=== PATIENT | female | born 1965 | race African-American/Black ===

== ENCOUNTER 2019-04-03 09:12 | Inpatient (IN) | payer OTHER ==
[~2019-04-03] VITALS: Ht 165.1 cm; Wt 91.3 kg
[2019-04-03] MEDS ORDERED: fentaNYL PF VIAL 100 MCG/2 ML VIAL IVP ONE (09:30)
[2019-04-03] MEDS ORDERED: IPRATRPIUM/ALBUTEROL 0.5/2.5MG 3 ML NEBU. NEB ONE (09:30)
[2019-04-03] MEDS ORDERED: methylPREDNISolone SOD SUCC PF 125 MG/2 ML VIAL. IV ONE (09:30)
[2019-04-03 09:52] LABS: BASO % 0 % (0-3); EOS % 0 % (0-3); HEMOGLOBIN 13.6 g/dL (12.0-15.5); LYMPH % 10 % (24-48); MEAN CORPUSCULAR HEMOGLOBIN 29 pg (25-35); MEAN CORPUSCULAR HGB CONC 33 g/dL (31-37); MEAN CORPUSCULAR VOLUME 89 fL (79-100); MONO # 1.3 x10^3/uL (0.0-1.1); MONO % 13 % (0-9); NEUT # 7.4 x10^3/uL (1.8-7.7); NEUT % 76 % (31-73); PLATELET COUNT 413 x10^3/uL (140-400); RED BLOOD COUNT 4.63 x10^6/uL (3.50-5.40); RED CELL DISTRIBUTION WIDTH 15.2 % (11.5-14.5); WHITE BLOOD COUNT 9.7 x10^3/uL (4.0-11.0)
[2019-04-03 10:00] LABS: ANION GAP 11 (6-14); BLOOD UREA NITROGEN 6 mg/dL (7-20); BUN/CREATININE RATIO 7 (6-20); CALCIUM 9.2 mg/dL (8.5-10.1); CARBON DIOXIDE 32 mmol/L (21-32); CHLORIDE 97 mmol/L (98-107); CREATININE 0.9 mg/dL (0.6-1.0); GFR 78.7; GLUCOSE 158 mg/dL (70-99); POTASSIUM 3.1 mmol/L (3.5-5.1); SODIUM 140 mmol/L (136-145)
--- NOTE | 2019-04-03 10:01 | RAD ---
PORTABLE CHEST 1V History: Shortness of breath. Chest pain. Comparison: July 23, 2005. Findings: Patchy bibasilar opacities with interstitial thickening and consolidative appearance within the right midlung. Enlarged cardiac silhouette. Small right and possible left pleural effusions. No pneumothorax. Impression: 1. Patchy central and bibasilar opacities with consolidative appearance in the right mid lung, may represent pneumonia or edema. 2. Small right pleural effusion. 3. Enlarged cardiac silhouette. Electronically signed by: Jamie Gunter DO (04/03/2019 9:59 AM) [facility]
[2019-04-03 10:02] LABS: PROTHROMBIN TIME PATIENT 14.8 SEC (11.7-14.0)
[2019-04-03 10:06] LABS: ALBUMIN 3.1 g/dL (3.4-5.0); ALBUMIN/GLOBULIN RATIO 0.6 (1.0-1.7); ALK PHOS 172 U/L (46-116); ALT (SGPT) 16 U/L (14-59); AST (SGOT) 20 U/L (15-37); CREATINE KINASE 69 U/L (26-192); LIPASE 58 U/L (73-393); MAGNESIUM 1.8 mg/dL (1.8-2.4); TOTAL BILIRUBIN 1.1 mg/dL (0.2-1.0); TOTAL PROTEIN 8.4 g/dL (6.4-8.2)
[2019-04-03 10:21] LABS: D-DIMER 4.95 ug/mlFEU (0.00-0.50)
--- NOTE | 2019-04-03 10:24 | PHYS DOC ---
Past Medical History Past Medical History: Hypertension, Other Additional Past Medical Histor: LEUKEMIA Past Surgical History: No Surgical History Alcohol Use: Occasionally Drug Use: Marijuana Adult General Chief Complaint Chief Complaint: CHEST PAIN HPI HPI Patient is a 53 year old female who presents via EMS with complaining of shortness of breath and chest pain. Patient complaining of intermittent episodes of shortness of breath and chest pain for 1 month that gradually getting worse. Patient states the pain is usually, last 4 all day and is a sharp and stabbing pain in her substernal area with radiation to her back and associated with shortness of breath and weakness. Patient complaining of productive cough and subjective fever and chills. She has history of smoking cigarettes and drinking alcohol 3 times a week. EMS reported that patient had O2 sats of 90% at room air and started on oxygen with improvement of oxygen to 95%. Review of Systems Review of Systems Constitutional: Subjective fever and chills] Eyes: Denies change in visual acuity, redness, or eye pain [] HENT: Denies nasal congestion or sore throat [] Respiratory: Reports cough and shortness of breath Cardiovascular: No additional information not addressed in HPI [] GI: Denies abdominal pain, nausea, vomiting, bloody stools or diarrhea [] : Denies dysuria or hematuria [] Musculoskeletal: Denies back pain or joint pain [] Integument: Denies rash or skin lesions [] Neurologic: Denies headache, focal weakness or sensory changes [] Endocrine: Denies polyuria or polydipsia [] All other systems were reviewed and found to be within normal limits, except as documented in this note. Current Medications Current Medications Current Medications Medications (Trade) Dose Ordered Sig/Carolyn Start Time Stop Time Status Last Admin Dose Admin Albuterol/ Ipratropium (Duoneb) 3 ml 1X ONCE 04/03/19 09:30 04/03/19 09:50 DC 04/03/19 09:36 3 ML Fentanyl Citrate (Fentanyl 2ml Vial) 50 mcg 1X ONCE 04/03/19 09:30 04/03/19 09:50 DC 04/03/19 10:09 50 MCG Methylprednisolone Sodium Succinate (SOLU-Medrol 125MG VIAL) 125 mg 1X ONCE 04/03/19 09:30 04/03/19 09:50 DC 04/03/19 10:08 125 MG Allergies Allergies Allergies Coded Allergies Type Severity Reaction Last Updated Verified No Known Drug Allergies 04/03/19 No Physical Exam Physical Exam Constitutional: Well developed, well nourished, mild distress, non-toxic appearance. [] HENT: Normocephalic, atraumatic. Eyes: PERRLA, EOMI, conjunctiva normal, no discharge. [] Neck: Normal range of motion, no tenderness, supple, no stridor. [] Cardiovascular: Tachycardia, no murmur [] Lungs & Thorax: Marked respiratory distress with wheezing and rhonchi. Abdomen: Bowel sounds normal, soft, no tenderness, no masses, no pulsatile masses. [] Skin: Warm, dry, no erythema, no rash. [] Back: No tenderness, no CVA tenderness. [] Extremities: No tenderness, no cyanosis, no clubbing, ROM intact, no edema. [] Neurologic: Alert and oriented X 3, no focal deficits noted. [] Psychologic: Affect anxious, judgement normal, mood normal. [] Current Patient Data Vital Signs Vital Signs Date Time Temp Pulse Resp B/P (MAP) Pulse Ox O2 Delivery O2 Flow Rate FiO2 04/03/19 09:36 92 Room Air 04/03/19 09:27 119 28 149/101 (117) 3.0 04/03/19 09:12 100.3 100.3 Lab Values Laboratory Tests Test 04/03/19 09:30 White Blood Count 9.7 x10^3/uL (4.0-11.0) Red Blood Count 4.63 x10^6/uL (3.50-5.40) Hemoglobin 13.6 g/dL (12.0-15.5) Hematocrit 41.0 % (36.0-47.0) Mean Corpuscular Volume 89 fL (79-100) Mean Corpuscular Hemoglobin 29 pg (25-35) Mean Corpuscular Hemoglobin Concent 33 g/dL (31-37) Red Cell Distribution Width 15.2 % (11.5-14.5) H Platelet Count 413 x10^3/uL (140-400) H Neutrophils (%) (Auto) 76 % (31-73) H Lymphocytes (%) (Auto) 10 % (24-48) L Monocytes (%) (Auto) 13 % (0-9) H Eosinophils (%) (Auto) 0 % (0-3) Basophils (%) (Auto) 0 % (0-3) Neutrophils # (Auto) 7.4 x10^3/uL (1.8-7.7) Lymphocytes # (Auto) 1.0 x10^3/uL (1.0-4.8) Monocytes # (Auto) 1.3 x10^3/uL (0.0-1.1) H Eosinophils # (Auto) 0.0 x10^3/uL (0.0-0.7) Basophils # (Auto) 0.0 x10^3/uL (0.0-0.2) Prothrombin Time 14.8 SEC (11.7-14.0) H Prothrombin Time INR 1.2 (0.8-1.1) H D-Dimer (Keisha) 4.95 ug/mlFEU (0.00-0.50) H Sodium Level 140 mmol/L (136-145) Potassium Level 3.1 mmol/L (3.5-5.1) L Chloride Level 97 mmol/L (98-107) L Carbon Dioxide Level 32 mmol/L (21-32) Anion Gap 11 (6-14) Blood Urea Nitrogen 6 mg/dL (7-20) L Creatinine 0.9 mg/dL (0.6-1.0) Estimated GFR (Cockcroft-Gault) 78.7 BUN/Creatinine Ratio 7 (6-20) Glucose Level 158 mg/dL (70-99) H Lactic Acid Level 2.0 mmol/L (0.4-2.0) Calcium Level 9.2 mg/dL (8.5-10.1) Magnesium Level 1.8 mg/dL (1.8-2.4) Total Bilirubin 1.1 mg/dL (0.2-1.0) H Aspartate Amino Transferase (AST) 20 U/L (15-37) Alanine Aminotransferase (ALT) 16 U/L (14-59) Alkaline Phosphatase 172 U/L (46-116) H Creatine Kinase 69 U/L (26-192) Troponin I Quantitative < 0.017 ng/mL (0.000-0.055) JY-Hpq-A-Type Natriuretic Peptide 380 pg/mL (0-124) H Total Protein 8.4 g/dL (6.4-8.2) H Albumin 3.1 g/dL (3.4-5.0) L Albumin/Globulin Ratio 0.6 (1.0-1.7) L Lipase 58 U/L (73-393) L Procalcitonin < 0.10 ng/mL (0.00-0.10) Ethyl Alcohol Level < 10 mg/dL (0-10) Laboratory Tests 04/03/19 09:30 Laboratory Tests 04/03/19 09:30 EKG EKG EKG interpreted by me. EKG at 0 923 showed sinus tachycardia at rate of 115, left atrial abnormalities, abnormal right axis deviation, Q waves in anteroseptal leads, T-wave abnormalities in anterolateral leads, no acute ST and T-wave elevation. Radiology/Procedures Radiology/Procedures [][facility] [address] [place] [address] IMAGING REPORT Signed PATIENT: MIHIR LEBRON ACCOUNT: [id number] : 1965 LOCATION: ER AGE: 53 SEX: F EXAM STATUS: REG ER ORD. PHYSICIAN: RAMY ENRIQUE MD REASON: shortness of breath and chest pain PROCEDURE: PORTABLE CHEST 1V PORTABLE CHEST 1V History: Shortness of breath. Chest pain. Comparison: July 23, 2005. Findings: Patchy bibasilar opacities with interstitial thickening and consolidative appearance within the right midlung. Enlarged cardiac silhouette. Small right and possible left pleural effusions. No pneumothorax. Impression: 1. Patchy central and bibasilar opacities with consolidative appearance in the right mid lung, may represent pneumonia or edema. 2. Small right pleural effusion. 3. Enlarged cardiac silhouette. Electronically signed by: Jamie Serrano DO (04/03/2019 9:59 AM) [facility] DICTATED and SIGNED BY: JAMIE SERRANO DO DATE: 04/03/1959 Course & Med Decision Making Course & Med Decision Making Pertinent Labs and Imaging studies reviewed. (See chart for details) Patient requiring admission for further evaluation and treatment. Discussed with Dr. Carlisle who is in agreement with admission. Discussed findings and plan with patient and family, who acknowledge understanding and agreement. Dragon Disclaimer Dragon Disclaimer This electronic medical record was generated, in whole or in part, using a voice recognition dictation system. Departure Departure Impression: Primary Impression: CAP (community acquired pneumonia) Additional Impressions: Hypertensive urgency Hypoxia Shortness of breath Elevated d-dimer Chest pain Disposition: ADMITTED INPATIENT (1017) Admitting Physician: EMMY (Dr. Carlisle accepted admission of 1016) Condition: IMPROVED Referrals: NO PCP (PCP) Problem Qualifiers Primary Impression: CAP (community acquired pneumonia) Laterality: unspecified laterality Qualified Codes: J18.9 - Pneumonia, unspecified organism Additional Impressions: Chest pain Chest pain type: unspecified Qualified Codes: R07.9 - Chest pain, unspecified RAMY ENRIQUE MD Apr 03, 2019 10:24
[2019-04-03 10:26] LABS: BASE EXCESS ABG 4 mmol/L (-3-3); HCO3 ABG 28 mmol/L (21-28); PCO2 ABG 38 mmHg (35-46); PO2 ABG 60 mmHg (75-108); SAT O2 ABG 93 % (92-99)
[2019-04-03 10:28] LABS: FIO2 ABG 32
[2019-04-03] MEDS ORDERED: cefTRIAXone IV Push 1 GM VIAL. IVP ONE (10:30)
[2019-04-03] MEDS ORDERED: IV NORMAL SALINE 1000ML BAG 1,000 ML IV ONE (10:30)
[2019-04-03] MEDS ORDERED: VANCOMYCIN 1GM IVPB FOR OMNI 250 ML IV ONE (10:30)
[2019-04-03] MEDS ORDERED: IOHEXOL 350 MG/ML 100 ML VIAL. ONE (11:14)
[2019-04-03] MEDS ORDERED: IOHEXOL 350 MG/ML 100 ML VIAL. IV ONE (11:15)
[2019-04-03] MEDS ORDERED: CONTRAST GIVEN. MC PRN (11:15)
[2019-04-03] MEDS: IV NORMAL SALINE 1000ML BAG 1,000 ML IV SCH ×2 (11:16→22:00)
[2019-04-03] MEDS ORDERED: CITA10TA8 PO (11:17)
[2019-04-03] MEDS ORDERED: ALLO300T PO (11:18)
[2019-04-03] MEDS ORDERED: CHLO25TA10 PO (11:18)
[2019-04-03] MEDS ORDERED: AMLO10TA8 PO (11:19)
[2019-04-03] MEDS ORDERED: LISI-130 PO (11:19)
[2019-04-03] MEDS ORDERED: LABETALOL 20 MG/4 ML DISP.SYRIN. IVP ONE (11:30)
--- NOTE | 2019-04-03 11:59 | RAD ---
CTA scan of the Chest with Contrast (Pulmonary Embolism protocol) 04/03/2019 Clinical History: Shortness of breath, chest pain, hypoxia and elevated d-dimer. Leukemia. Technique: After the intravenous administration of 100 cc of Omnipaque 350, contiguous, 0.625 mm axial sections were obtained through the chest. 2 mm axial and 3D MIP coronal and sagittal reconstructed images were obtained. One or more of the following individualized dose reduction techniques were utilized for this study: 1. Automated exposure control. 2. Adjustment of the mA and/or kV according to patient size. 3. Use of iterative reconstruction technique. Findings: Comparison is made to a portable chest radiograph from earlier today. No filling defect is seen within the major branches of either pulmonary artery. There is no CT evidence of pulmonary embolism. The heart is mildly enlarged. There is a moderate-sized pericardial effusion. Atherosclerotic calcification of the thoracic aorta and its branches is noted. The thoracic aorta is tortuous but tapers normally. Scattered coronary artery calcifications are seen. There are small bilateral pleural effusions, right greater than left. Patchy areas of subsegmental atelectasis and/or infiltrate are seen involving the right middle lobe, right lower lobe and left lower lobe. Prominence of the pulmonary vasculature and interstitial markings in both lungs is seen suggesting mild to moderate CHF No pneumothorax is seen. Impression: 1. There is no CT evidence of pulmonary embolism. 2. Mild cardiomegaly. Moderate pericardial effusion. Findings suggesting mild to moderate CHF. 3. Small bilateral pleural effusions, right greater than left. Areas of atelectasis and/or infiltrate are seen involving the right middle lobe, right lower lobe and left lower lobe. Electronically signed by: Allan Magallanes MD (04/03/2019 11:56 AM) [facility]
[2019-04-03 12:00] VITALS: BP 188/105
--- NOTE | 2019-04-03 12:20 | PDOC1 ---
History and Physical Date of Admission Date of Admission DATE: 04/03/19 TIME: 12:20 Identification/Chief Complaint Chief Complaint Chest pain Source Source: Patient History of Present Illness History of Present Illness Ms Rainey is a 53yo F w/ PMHx HTN, Leukemia (diagnosed 8 years ago), Smoker who presents to ED c/o shortness of breath 1 month with new associated onset of chest pain that started today with coughing. She notes the pain is central but also indicates along her rib lines, worse with coughing and deep inspirations. It has gotten so bad she has stopped smoking today. She was initially found hypoxic requiring 3 L NCO2 and in ED CXR showed right middle lobe consolidation and her d dimer was elevated, therefore she underwent CTPA confirming consolidation on the right as well as the left. She was started on empiric antibiotics vancomycin and rocephin and admitted to [facility]. Her potassium level was 3.3, she takes chlorthalidone outpatient for HTN. Past Medical History Cardiovascular: HTN Pulmonary: Bronchitis GI: No pertinent hx Heme/Onc: Cancer (Leukemia?) Hepatobiliary: No pertinent hx Psych: No pertinent hx Rheumatologic: No pertinent hx Infectious disease: No pertinent hx ENT: No pertinent hx Renal/: No pertinent hx Endocrine: No pertinent hx Dermatology: No pertinent hx Past Surgical History Past Surgical History: No pertinent history Family History Family History: Cancer (Multiple myeloma - grandmother), Hypertension Social History Smoke: 1 pack per day ALCOHOL: none Drugs: Marijuana Current Problem List Problem List Problems Medical Problems: (1) CAP (community acquired pneumonia) Status: Acute (2) Chest pain Status: Acute (3) Elevated d-dimer Status: Acute (4) Hypertensive urgency Status: Acute (5) Hypoxia Status: Acute (6) Shortness of breath Status: Acute Current Medications Current Medications Current Medications Albuterol/ Ipratropium (Duoneb) 3 ml 1X ONCE NEB Last administered on 04/03/19at 09:36; Start 04/03/19 at 09:30; Stop 04/03/19 at 09:50; Status DC Methylprednisolone Sodium Succinate (SOLU-Medrol 125MG VIAL) 125 mg 1X ONCE IV Last administered on 04/03/19at 10:08; Start 04/03/19 at 09:30; Stop 04/03/19 at 09:50; Status DC Fentanyl Citrate (Fentanyl 2ml Vial) 50 mcg 1X ONCE IVP Last administered on 04/03/19at 10:09; Start 04/03/19 at 09:30; Stop 04/03/19 at 09:50; Status DC Sodium Chloride 1,000 ml @ 1,000 mls/hr 1X ONCE IV Last administered on 04/03/19at 10:53; Start 04/03/19 at 10:30; Stop 04/03/19 at 11:29; Status DC Ceftriaxone Sodium (Rocephin) 1 gm 1X ONCE IVP Last administered on 04/03/19at 10:54; Start 04/03/19 at 10:30; Stop 04/03/19 at 10:31; Status DC Vancomycin HCl 250 ml @ 250 mls/hr 1X ONCE IV Last administered on 04/03/19at 10:54; Start 04/03/19 at 10:30; Stop 04/03/19 at 11:29; Status DC Iohexol (Omnipaque 350 Mg/ml) 100 ml 1X ONCE IV Last administered on 04/03/19at 11:44; Start 04/03/19 at 11:15; Stop 04/03/19 at 11:16; Status DC Iohexol (Omnipaque 350 Mg/ml) 100 ml STK-MED ONCE .ROUTE ; Start 04/03/19 at 11:14; Stop 04/03/19 at 11:14; Status DC Info (CONTRAST GIVEN -- Rx MONITORING) 1 each PRN DAILY PRN MC SEE COMMENTS; Start 04/03/19 at 11:15; Stop 04/05/19 at 11:14 Labetalol HCl (Normodyne Iv Push) 10 mg 1X ONCE IVP ; Start 04/03/19 at 11:30; Stop 04/03/19 at 11:31; Status DC Sodium Chloride 1,000 ml @ 100 mls/hr Q10H IV ; Start 04/03/19 at 11:16; Stop 04/04/19 at 11:15 Active Scripts Active Reported Amlodipine Besylate 10 Mg Tablet 10 Mg PO DAILY Lisinopril 40 Mg Tablet 40 Mg PO DAILY Chlorthalidone (Chlorthalidone) 25 Mg Tablet 25 Mg PO DAILY Allopurinol 300 Mg Tablet 300 Mg PO DAILY Celexa (Citalopram Hydrobromide) 10 Mg Tablet 10 Mg PO DAILY Allergies Allergies: Coded Allergies: No Known Drug Allergies (Unverified , 04/03/19) ROS General: YES: Fatigue, Malaise, Appetite; No: Chills, Night Sweats, Other PSYCHOLOGICAL ROS: No: Anxiety, Behavioral Disorder, Concentration difficultie, Decreased libido, Depression, Disorientation, Hallucinations, Hostility, Irritablity, Memory difficulties, Mood Swings, Obsessive thoughts, Physical abuse, Sexual abuse, Sleep disturbances, Suicidal ideation, Other Eyes: No Blurry vision, No Decreased vision, No Double vision, No Dry eyes, No Excessive tearing, No Eye Pain, No Itchy Eyes, No Loss of vision, No Photophobia, No Scotomata, No Uses contacts, No Uses glasses, No Other HEENT: No: Heacaches, Visual Changes, Hearing change, Nasal congestion, Nasal discharge, Oral lesions, Sinus pain, Sore Throat, Epistaxis, Sneezing, Snoring, Tinnitus, Vertigo, Vocal changes, Other ALLERGY AND IMMUNOLOGY: No: Hives, Insect Bite Sensitivity, Itchy/Watery Eyes, Nasal Congestion, Post Nasal Drip, Seasonal Allergies, Other Hematological and Lymphatic: No: Bleeding Problems, Blood Clots, Blood Transfusions, Brusing, Night Sweats, Pallor, Swollen Lymph Nodes, Other ENDOCRINE: No: Breast Changes, Galactorrhea, Hair Pattern Changes, Hot Flashes, Malaise/lethargy, Mood Swings, Palpitations, Polydipsia/polyuria, Skin Changes, Temperature Intolerance, Unexpected Weight Changes, Other Breast: No New/Changing Breast Lumps, No Nipple changes, No Nipple discharge, No Other Respiratory: YES: Cough, Pleuritic Pain, Shortness of breath, SOB with excertion, Tachypnea, Wheezing; No: Hemoptysis, Orthopnea, Sputum Changes, Stridor, Other Cardiovascular: yes Chest Pain; No Palpitations, No Orthopnea, No Paroxysmal Noc. Dyspnea, No Edema, No Lt Headedness, No Other Gastrointestinal: Yes Nausea; No Vomiting, No Abdominal Pain, No Diarrhea, No Constipation, No Melena, No Hematochezia, No Other Genitourinary: No Dysuria, No Frequency, No Incontinence, No Hematuria, No Retention, No Discharge, No Urgency, No Pain, No Flank Pain, No Other, No , No , No , No , No , No , No Musculoskeletal: No Gait Disturbance, No Joint Pain, No Joint Stiffness, No Joint Swelling, No Muscle Pain, No Muscular Weakness, No Pain In:, No Swelling In:, No Other Neurological: No Behavorial Changes, No Bowel/Bladder ControlChng, No Confusion, No Dizziness, No Gait Disturbance, No Headaches, No Impaired Coord/balance, No Memory Loss, No Numbness/Tingling, No Seizures, No Speech Problems, No Tremors, No Visual Changes, No Weakness, No Other Skin: No Dry Skin, No Eczema, No Hair Changes, No Lumps, No Mole Changes, No Mottling, No Nail Changes, No Pruritus, No Rash, No Skin Lesion Changes, No Other, No Acne Physical Exam General: Alert, Oriented X3, Cooperative, No acute distress HEENT: Atraumatic, PERRLA, EOMI, Mucous membr. moist/pink Lungs: Other (Wheezing, slight basilar rhonchi) Heart: S1S2, RRR, no gallops, no murmurs Abdomen: Normal bowel sounds, Soft, No tenderness, No hepatosplenomegaly, No masses Rectal Exam: not examined Extremities: No clubbing, No cyanosis, No edema, Normal pulses, No tenderness/swelling Skin: No rashes, No breakdown, No significant lesion Neuro: Normal gait, Normal speech, Strength at 5/5 X4 ext, Normal tone, Sensation intact, Cranial nerves 3-12 NL, Reflexes 2+ Psych/Mental Status: Mental status NL, Mood NL Vitals Vitals Vital Signs Date Time Temp Pulse Resp B/P (MAP) Pulse Ox O2 Delivery O2 Flow Rate FiO2 04/03/19 10:57 19 27 168/105 (126) 93 Nasal Cannula 3.0 04/03/19 09:12 100.3 100.3 Labs Labs Laboratory Tests Test 04/03/19 09:30 04/03/19 10:23 White Blood Count 9.7 x10^3/uL (4.0-11.0) Red Blood Count 4.63 x10^6/uL (3.50-5.40) Hemoglobin 13.6 g/dL (12.0-15.5) Hematocrit 41.0 % (36.0-47.0) Mean Corpuscular Volume 89 fL (79-100) Mean Corpuscular Hemoglobin 29 pg (25-35) Mean Corpuscular Hemoglobin Concent 33 g/dL (31-37) Red Cell Distribution Width 15.2 % (11.5-14.5) Platelet Count 413 x10^3/uL (140-400) Neutrophils (%) (Auto) 76 % (31-73) Lymphocytes (%) (Auto) 10 % (24-48) Monocytes (%) (Auto) 13 % (0-9) Eosinophils (%) (Auto) 0 % (0-3) Basophils (%) (Auto) 0 % (0-3) Neutrophils # (Auto) 7.4 x10^3/uL (1.8-7.7) Lymphocytes # (Auto) 1.0 x10^3/uL (1.0-4.8) Monocytes # (Auto) 1.3 x10^3/uL (0.0-1.1) Eosinophils # (Auto) 0.0 x10^3/uL (0.0-0.7) Basophils # (Auto) 0.0 x10^3/uL (0.0-0.2) Prothrombin Time 14.8 SEC (11.7-14.0) Prothromb Time International Ratio 1.2 (0.8-1.1) D-Dimer (Keisha) 4.95 ug/mlFEU (0.00-0.50) Sodium Level 140 mmol/L (136-145) Potassium Level 3.1 mmol/L (3.5-5.1) Chloride Level 97 mmol/L (98-107) Carbon Dioxide Level 32 mmol/L (21-32) Anion Gap 11 (6-14) Blood Urea Nitrogen 6 mg/dL (7-20) Creatinine 0.9 mg/dL (0.6-1.0) Estimated GFR (Cockcroft-Gault) 78.7 BUN/Creatinine Ratio 7 (6-20) Glucose Level 158 mg/dL (70-99) Lactic Acid Level 2.0 mmol/L (0.4-2.0) Calcium Level 9.2 mg/dL (8.5-10.1) Magnesium Level 1.8 mg/dL (1.8-2.4) Total Bilirubin 1.1 mg/dL (0.2-1.0) Aspartate Amino Transf (AST/SGOT) 20 U/L (15-37) Alanine Aminotransferase (ALT/SGPT) 16 U/L (14-59) Alkaline Phosphatase 172 U/L (46-116) Creatine Kinase 69 U/L (26-192) Troponin I Quantitative < 0.017 ng/mL (0.000-0.055) QK-Zni-L-Type Natriuretic Peptide 380 pg/mL (0-124) Total Protein 8.4 g/dL (6.4-8.2) Albumin 3.1 g/dL (3.4-5.0) Albumin/Globulin Ratio 0.6 (1.0-1.7) Lipase 58 U/L (73-393) Ethyl Alcohol Level < 10 mg/dL (0-10) O2 Saturation 93 % (92-99) Arterial Blood pH 7.48 (7.35-7.45) Arterial Blood pCO2 at Patient Temp 38 mmHg (35-46) Arterial Blood pO2 at Patient Temp 60 mmHg (75-108) Arterial Blood HCO3 28 mmol/L (21-28) Arterial Blood Base Excess 4 mmol/L (-3-3) FiO2 32 Laboratory Tests Test 04/03/19 09:30 04/03/19 10:23 White Blood Count 9.7 x10^3/uL (4.0-11.0) Red Blood Count 4.63 x10^6/uL (3.50-5.40) Hemoglobin 13.6 g/dL (12.0-15.5) Hematocrit 41.0 % (36.0-47.0) Mean Corpuscular Volume 89 fL (79-100) Mean Corpuscular Hemoglobin 29 pg (25-35) Mean Corpuscular Hemoglobin Concent 33 g/dL (31-37) Red Cell Distribution Width 15.2 % (11.5-14.5) Platelet Count 413 x10^3/uL (140-400) Neutrophils (%) (Auto) 76 % (31-73) Lymphocytes (%) (Auto) 10 % (24-48) Monocytes (%) (Auto) 13 % (0-9) Eosinophils (%) (Auto) 0 % (0-3) Basophils (%) (Auto) 0 % (0-3) Neutrophils # (Auto) 7.4 x10^3/uL (1.8-7.7) Lymphocytes # (Auto) 1.0 x10^3/uL (1.0-4.8) Monocytes # (Auto) 1.3 x10^3/uL (0.0-1.1) Eosinophils # (Auto) 0.0 x10^3/uL (0.0-0.7) Basophils # (Auto) 0.0 x10^3/uL (0.0-0.2) Prothrombin Time 14.8 SEC (11.7-14.0) Prothromb Time International Ratio 1.2 (0.8-1.1) D-Dimer (Keisha) 4.95 ug/mlFEU (0.00-0.50) Sodium Level 140 mmol/L (136-145) Potassium Level 3.1 mmol/L (3.5-5.1) Chloride Level 97 mmol/L (98-107) Carbon Dioxide Level 32 mmol/L (21-32) Anion Gap 11 (6-14) Blood Urea Nitrogen 6 mg/dL (7-20) Creatinine 0.9 mg/dL (0.6-1.0) Estimated GFR (Cockcroft-Gault) 78.7 BUN/Creatinine Ratio 7 (6-20) Glucose Level 158 mg/dL (70-99) Lactic Acid Level 2.0 mmol/L (0.4-2.0) Calcium Level 9.2 mg/dL (8.5-10.1) Magnesium Level 1.8 mg/dL (1.8-2.4) Total Bilirubin 1.1 mg/dL (0.2-1.0) Aspartate Amino Transf (AST/SGOT) 20 U/L (15-37) Alanine Aminotransferase (ALT/SGPT) 16 U/L (14-59) Alkaline Phosphatase 172 U/L (46-116) Creatine Kinase 69 U/L (26-192) Troponin I Quantitative < 0.017 ng/mL (0.000-0.055) JQ-Teu-A-Type Natriuretic Peptide 380 pg/mL (0-124) Total Protein 8.4 g/dL (6.4-8.2) Albumin 3.1 g/dL (3.4-5.0) Albumin/Globulin Ratio 0.6 (1.0-1.7) Lipase 58 U/L (73-393) Ethyl Alcohol Level < 10 mg/dL (0-10) O2 Saturation 93 % (92-99) Arterial Blood pH 7.48 (7.35-7.45) Arterial Blood pCO2 at Patient Temp 38 mmHg (35-46) Arterial Blood pO2 at Patient Temp 60 mmHg (75-108) Arterial Blood HCO3 28 mmol/L (21-28) Arterial Blood Base Excess 4 mmol/L (-3-3) FiO2 32 Images Images CXR - 1. Patchy central and bibasilar opacities with consolidative appearance in the right mid lung, may represent pneumonia or edema. 2. Small right pleural effusion. 3. Enlarged cardiac silhouette. CTPA - 1. There is no CT evidence of pulmonary embolism. 2. Mild cardiomegaly. Moderate pericardial effusion. Findings suggesting mild to moderate CHF. 3. Small bilateral pleural effusions, right greater than left. Areas of ate lectasis and/or infiltrate are seen involving the right middle lobe, right lower lobe and left lower lobe. VTE Prophylaxis Ordered VTE Prophylaxis Devices: No VTE Pharmacological Prophylaxi: Yes Assessment/Plan Assessment/Plan A/P: Acute hypoxic respiratory failure - Likely 2/2 bronchitis/pneumonia. With her smoking history could be developing COPD. Will give nebs and wean O2 as tolerated. 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 MARIE FAIR MD Apr 03, 2019 12:20
[2019-04-03 13:00] VITALS: BP 127/79
[2019-04-03 14:00] VITALS: BP 171/105
[2019-04-03] MEDS ORDERED: MORPHINE SULFATE 4 MG/ML VIAL. IV PRN (14:30)
[2019-04-03] MEDS ORDERED: KETOROLAC 15 MG/ML VIAL. IV ONE (14:30)
[2019-04-03] MEDS ORDERED: MAGNESIUM SULFATE 2GM 50 ML IV ONE (14:30)
[2019-04-03 15:00] VITALS: BP 175/101
[2019-04-03] MEDS: ALLOPURINOL 300 MG TABLET. PO SCH (15:14)
[2019-04-03] MEDS: amLODIPine BESYLATE 10 MG TABLET PO SCH (15:14)
[2019-04-03] MEDS: CITALOPRAM 10 MG TABLET. PO SCH (15:14)
[2019-04-03] MEDS: POTASSIUM CHLORIDE 10MEQ 100 ML IV SCH ×4 (15:36→19:18)
[2019-04-03] MEDS: IPRATRPIUM/ALBUTEROL 0.5/2.5MG 3 ML NEBU. NEB SCH ×2 (15:52→19:50)
[2019-04-03 16:00] VITALS: BP 171/95
[2019-04-03] MEDS ORDERED: DASA70TA PO (17:07)
[2019-04-03] MEDS ORDERED: ESCI10TA2 PO (17:07)
[2019-04-03] MEDS: LOSARTAN POTASSIUM 50 MG TABLET. PO SCH (17:39)
[2019-04-03 17:40] LABS: BILIRUBIN,URINE NEGATIVE (NEG); CLARITY,URINE CLEAR; COLOR,URINE AMBER; NITRITE,URINE NEGATIVE (NEG); PH,URINE 6.5; PROTEIN,URINE 30 mg/dL (NEG-TRACE)
[2019-04-03 17:47] LABS: BARBITURATES NEG (NEG); BENZODIAZEPINES NEG (NEG); CANNABINOIDS POS (NEG); COCAINE NEG (NEG); METHADONE NEG (NEG); OPIATES NEG (NEG); PHENCYCLIDINE NEG (NEG)
[2019-04-03 17:48] LABS: AMPHETAMINE/METHAMPHETAMINE NEG (NEG)
[2019-04-03 17:59] LABS: BACTERIA,URINE 0 /HPF (0-FEW); RBC,URINE 0 /HPF (0-2); SQUAMOUS EPITHELIAL CELL,UR FEW /LPF; WBC,URINE OCC /HPF (0-4)
[2019-04-03] MEDS ORDERED: ENOXAPARIN 40 MG/0.4 ML SYRINGE. SQ SCH (18:00)
[2019-04-03] MEDS: hydrALAZINE 20 MG/ML VIAL. IVP PRN ×2 (18:14→23:39)
[2019-04-03 19:05] LABS: INFLUENZA A PATIENT NEGATIVE (NEGATIVE); INFLUENZA B PATIENT NEGATIVE (NEGATIVE)
[2019-04-03] MEDS: BUDESONIDE 0.5 MG/2 ML NEBU. NEB SCH (19:50)
[2019-04-03 20:00] VITALS: BP 145/95
[2019-04-03] MEDS ORDERED: DOXYCYCLINE HYCLATE 100 MG in IV DEXTROSE 5% 100ML 100 ML IV SCH (21:00)
[2019-04-03] MEDS: KETOROLAC 15 MG/ML VIAL. IV PRN (22:00)
[2019-04-03] MEDS: FAMOTIDINE 20 MG TABLET. PO SCH (22:00)
[2019-04-04] VITALS: BP 154/89
[2019-04-04 04:00] VITALS: BP 158/98
[2019-04-04 04:57] LABS: BASO % 0 % (0-3); EOS % 0 % (0-3); HEMATOCRIT 38.7 % (36.0-47.0); HEMOGLOBIN 12.7 g/dL (12.0-15.5); LYMPH % 7 % (24-48); MEAN CORPUSCULAR HEMOGLOBIN 29 pg (25-35); MEAN CORPUSCULAR HGB CONC 33 g/dL (31-37); MEAN CORPUSCULAR VOLUME 88 fL (79-100); MONO # 2.3 x10^3/uL (0.0-1.1); MONO % 17 % (0-9); NEUT # 10.1 x10^3/uL (1.8-7.7); NEUT % 75 % (31-73); PLATELET COUNT 411 x10^3/uL (140-400); RED BLOOD COUNT 4.38 x10^6/uL (3.50-5.40); WHITE BLOOD COUNT 13.4 x10^3/uL (4.0-11.0)
[2019-04-04 05:28] LABS: CALCIUM 9.1 mg/dL (8.5-10.1); CREATININE 0.8 mg/dL (0.6-1.0); GFR 90.1; MAGNESIUM 2.3 mg/dL (1.8-2.4); POTASSIUM 3.2 mmol/L (3.5-5.1)
[2019-04-04] MEDS: KETOROLAC 15 MG/ML VIAL. IV PRN ×2 (05:45→05:48)
--- NOTE | 2019-04-04 06:23 | NUR ---
ED Bridge order fluids of NS 100ml/hr not going at this time per patient preference. Pt prefers to lie on R side, where PIV is in place. PIV gets obstructed when pt lies this way. Pt is currently drinking fluids and able to eat. Pt requested to have fluids off at this time "to get a few hours of peaceful sleep." Pt is currently resting with eyes closed and call light within reach. Will pass on and continue to monitor.
--- NOTE | 2019-04-04 06:24 | EKG ---
[facility] [address] [place] [address] Test Date: 2019-04-03 Test Time: 09:23:10 Pat Name: MIHIR LEBRON Department: Room: Gender: F [employer]: : [id number] Requested By: RAMY ENRIQUE Order Number: [id number] Reading MD: Measurements Intervals [place] Rate: 114 P: 173 WV: 148 QRS: 111 QRSD: 88 T: 4 QT: 310 QTc: 430 Interpretive Statements SUPRAVENTRICULAR RHYTHM LEFT ATRIAL ABNORMALITY ABNORMAL RIGHT AXIS DEVIATION ST & T ABNORMALITY, CONSIDER INFERIOR ISCHEMIA OR LEFT VENTRICULAR STRAIN T ABNORMALITY IN ANTEROLATERAL LEADS ABNORMAL ECG No previous ECG available for comparison
[2019-04-04 07:07] LABS: % ATYL 1 % (0-0); % MONOS 14 % (0-10)
[2019-04-04 07:08] LABS: % BANDS 5 % (0-9); % LYMPHS 7 % (24-48); % SEGS 73 % (35-66); PLT ESTIMATE INCREASED (ADEQUATE)
[2019-04-04 07:10] LABS: ANISOCYTOSIS SLIGHT; POLYCHROMASIA SLIGHT
[2019-04-04 08:00] VITALS: BP 156/97
[2019-04-04] MEDS: IPRATRPIUM/ALBUTEROL 0.5/2.5MG 3 ML NEBU. NEB SCH ×2 (08:45→12:12)
[2019-04-04] MEDS: BUDESONIDE 0.5 MG/2 ML NEBU. NEB SCH (08:45)
[2019-04-04] MEDS ORDERED: cefTRIAXone IV Push 1 GM VIAL. IVP SCH ×2 (09:00→11:00)
[2019-04-04] MEDS ORDERED: cefTRIAXone IM 1 GM VIAL IM ONE (09:00)
[2019-04-04] MEDS ORDERED: DOXYCYCLINE HYCLATE 100 MG TABLET PO ONE (09:00)
[2019-04-04] MEDS ORDERED: predniSONE 20 MG TABLET PO SCH (09:00)
[2019-04-04] MEDS: amLODIPine BESYLATE 10 MG TABLET PO SCH (09:14)
[2019-04-04] MEDS: LOSARTAN POTASSIUM 50 MG TABLET. PO SCH (09:16)
[2019-04-04] MEDS: CITALOPRAM 10 MG TABLET. PO SCH (09:16)
[2019-04-04] MEDS: ALLOPURINOL 300 MG TABLET. PO SCH (09:16)
[2019-04-04] MEDS: FAMOTIDINE 20 MG TABLET. PO SCH (09:16)
[2019-04-04] MEDS ORDERED: POTASSIUM CHLORIDE 20 MEQ TABLET.ER. PO ONE (10:00)
[2019-04-04] MEDS ORDERED: DOXY100C2 PO (10:04)
[2019-04-04] MEDS ORDERED: FAMO20TA5 PO (10:04)
--- NOTE | 2019-04-04 10:26 | CARD ---
MR#: [id number] Date of Study: 04/04/2019 Ordering Physician: MARIE FAIR, Referring Physician: MARIE FAIR, Tech: Liliana Strickland [facility] APPROVED REPORT EXAM: Two-dimensional and M-mode echocardiogram with Doppler and color Doppler. Other Information Quality : AverageHR: 105bpm Rhythm : Tachycardia INDICATION Pericardial Effusion 2D DIMENSIONS RVDd4.0 (2.9-3.5cm)Left Atrium(2D)4.3 (1.6-4.0cm) IVSd1.9 (0.7-1.1cm)Aortic Root(2D)3.3 (2.0-3.7cm) LVDd4.3 (3.9-5.9cm)LVOT Diameter2.1 (1.8-2.4cm) PWd1.6 (0.7-1.1cm)LVDs3.0 (2.5-4.0cm) FS (%) 31.4 %SV49.7 ml LVEF(%)59.6 (>50%) M-Mode DIMENSIONS Left Atrium(MM)4.17 (2.5-4.0cm)Aortic Root3.52 (2.2-3.7cm) Aortic Valve AoV Peak Reggie.147.3cm/sAoV VTI18.8cm AO Peak GR.8.7mmHgLVOT VTI 15.75cm AO Mean GR.5mmHg Mitral Valve MV E Qldjjtsq10.7cm/sMV DECEL [id number] MV A Dsuxfcge51.0cm/sE/A Ratio1.0 MV A [id number] TDI Lateral E' P. V6.76cm/sMedial E' P. V9.72cm/s E/Lateral E'13.0E/Medial E'9.0 Tricuspid Valve TR P. Yhjdqyhz874md/sRAP [id number] TR Peak Gr.00srKgYEYO12ymAd LEFT VENTRICLE The left ventricle is normal size. There is moderate to severe concentric left ventricular hypertroph y. The left ventricular systolic function is normal. The Ejection Fraction is 60-65%. There is normal LV segmental wall motion. Transmitral Doppler flow pattern is Grade II-pseudonormal filling dynamics . RIGHT VENTRICLE The right ventricle is mildly dilated. There is normal right ventricular wall thickness. The right ve ntricular systolic function is normal. ATRIA The left atrium is mildly dilated. The right atrium is mildly dilated. The interatrial septum is inta ct with no evidence for an atrial septal defect or patent foramen ovale as noted on 2-D or Doppler im aging. AORTIC VALVE The aortic valve is normal in structure and function. The aortic valve is trileaflet. Doppler and Col or Flow revealed no significant aortic regurgitation. There is no significant aortic valvular stenosi s. MITRAL VALVE The mitral valve is normal in structure and function. There is no evidence of mitral valve prolapse. There is no mitral valve stenosis. Doppler and Color-flow revealed trace mitral regurgitation. TRICUSPID VALVE The tricuspid valve is normal in structure and function. Doppler and Color Flow revealed trace tricus pid regurgitation. The PA pressure was estimated at 33 mmHg. There is no tricuspid valve prolapse or vegetation. There is no tricuspid valve stenosis. PULMONIC VALVE The pulmonic valve is not well visualized. GREAT VESSELS The aortic root is normal in size. The ascending aorta is normal in size. The IVC is normal in size a nd collapses >50% with inspiration. PERICARDIAL EFFUSION There is a trace circumferential pericardial effusion. Critical Notification Critical Value: No <Conclusion> The left ventricular systolic function is normal. The Ejection Fraction is 60-65%. There is normal LV segmental wall motion. Trace mitral regurgitation. Trace tricuspid regurgitation. The PA pressure was estimated at 33 mmHg. There is a trace circumferential pericardial effusion. Signed by : Primo Marino, Electronically Approved : 04/04/2019 10:26:15
--- NOTE | 2019-04-04 10:58 | CONS ---
DATE OF CONSULTATION: PULMONARY CONSULTATION ATTENDING PHYSICIAN: Parrish Carlisle MD REASON FOR CONSULTATION: Dyspnea and chest pain. HISTORY OF PRESENT ILLNESS: The patient is a 53-year-old female who has a history of hypertension, history of leukemia diagnosed 8 years ago and has been followed at . The patient came to the hospital with shortness of breath. She states that shortness of breath and chest pain started about a month ago and the last two weeks have been slowly progressive. She said she had a cough with yellow sputum production about a week ago and the cough is now clearing up. No headaches. No nausea or vomiting, no diarrhea, no leg edema. No focal weakness. She underwent CT angiogram, which was reviewed by me. There was no evidence of pulmonary embolism. There was mild cardiomegaly and moderate pericardial effusion. There was also mild CHF. There were small bilateral pleural effusions, slightly loculated in the right lower lobe along with atelectasis. There was some atelectasis in the right middle lobe, right lower lobe and left lower lobe. I have been asked to see her for further evaluation. PAST MEDICAL HISTORY: 1. History of hypertension. 2. History of suspected COPD, smoker for 30 years. 3. History of CML, being followed at . 4. History of underlying obesity. PAST SURGICAL HISTORY: No recent surgery. FAMILY HISTORY: Multiple myeloma in grandmother and hypertension. SOCIAL HISTORY: Smoker 1-pack per day for 30 years. Does not do vaping. History of crack cocaine use for 15 years before quitting 10 years ago and history of marijuana for the last 10 to 15 years. She buys from the street. ALLERGIES: None. CURRENT MEDICATIONS: Reviewed as listed in the [facility], including Lovenox for DVT prophylaxis, DuoNebs and on prednisone. REVIEW OF SYSTEMS: Twelve-point system obtained. Pertinent positives discussed in my history of present illness, otherwise noncontributory. All systems that were negative were reviewed as well. PHYSICAL EXAMINATION: VITAL SIGNS: Vital signs were reviewed. She has a T-max of 100.3. Blood pressure was high initially, now it is 171/95. Pulse ox 92% on 2 liters. HEENT: Sclerae nonicteric. NECK: Supple. LUNGS: With diminished breath sounds posteriorly. CARDIOVASCULAR: Regular rate. ABDOMEN: Soft, nontender and obese. EXTREMITIES: With no pitting edema. LABORATORY DATA: Labs were reviewed. White cell count 13.4, hemoglobin 12.7 and platelets are 411. Sed rate of 69. BUN and creatinine of 5 and 0.8. IMPRESSION: 1. Dyspnea and chest pain, which has been progressive for the last 4 weeks and accentuated in last 2 weeks. I suspect that this could be related to viral pericarditis. She has moderate pericardial effusion on the CT chest and she has been doing marijuana for last 15 years. She used to do crack cocaine for 15 years before quitting. 2. Abnormal CT chest with a moderate pericardial effusion and small loculated effusion in the right lower lobe. There is associated atelectasis in the right middle, right lower and left lower lobe. Clinically, not much of significance and we will monitor the x-ray. 3. Long history of tobacco use, suspect underlying chronic obstructive pulmonary disease. 4. Long history of crack cocaine use, suspect cardiomyopathy and mild CHF based on CT chest. The patient has been doing marijuana as well for the last 10-15 years. RECOMMENDATIONS: 1. Continue present oxygen. 2. Continue present antibiotics. Sed rate is high suggesting an inflammatory pericarditis in the differential diagnosis. 3. Follow Cardiology recommendation. 4. Obtain echo to better assess for pericardial effusion and EF. 5. Bronchodilators. 6. Lovenox for DVT prophylaxis. 7. Oral prednisone. 8. Oral antibiotics. 9. Discussed with Dr. Greenberg, discussed with RN and we will follow along with you. Critical care time 37 minutes. Discussed with family. JUAN EDOUARD MD DR: STEPH/avi JOB#: [id number] / [id number]
[2019-04-04] MEDS ORDERED: DOXYCYCLINE HYCLATE 100 MG TABLET PO SCH ×2 (11:00→21:00)
--- NOTE | 2019-04-04 11:20 | PDOC ---
PROGRESS NOTES Chief Complaint Chief Complaint sepsis pericardial effusion, probable pericarditis with timing of story and chest pain Acute hypoxic respiratory failure - CT showed bilateral pneumonia. 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 Stuart GLOVER consulted transfer out of ICU Vitals Vitals Vital Signs Date Time Temp Pulse Resp B/P (MAP) Pulse Ox O2 Delivery O2 Flow Rate FiO2 04/04/19 09:16 103 168/89 04/04/19 08:46 Nasal Cannula 2.0 04/04/19 08:00 98.6 22 89 98.6 Physical Exam General: Alert, Oriented X3, Cooperative, No acute distress Abdomen: Normal bowel sounds, Soft, No tenderness, No hepatosplenomegaly, No masses Extremities: No clubbing, No cyanosis, No edema, Normal pulses, No tenderness/swelling Skin: No rashes, No breakdown, No significant lesion Labs LABS Laboratory Tests Test 04/03/19 12:50 04/03/19 14:05 04/03/19 17:30 04/03/19 17:35 Lactic Acid Level 2.7 mmol/L (0.4-2.0) Troponin I Quantitative < 0.017 ng/mL (0.000-0.055) C-Reactive Protein, Quantitative 313.6 mg/L (0-3.3) Urine Collection Type Unknown Urine Color Briana Urine Clarity Clear Urine pH 6.5 Urine Specific [place] >=1.030 Urine Protein 30 mg/dL (NEG-TRACE) Urine Glucose (UA) Negative mg/dL (NEG) Urine Ketones (Stick) Negative mg/dL (NEG) Urine Blood Negative (NEG) Urine Nitrite Negative (NEG) Urine Bilirubin Negative (NEG) Urine Urobilinogen Dipstick 1.0 mg/dL (0.2 mg/dL) Urine Leukocyte Esterase Negative (NEG) Urine RBC 0 /HPF (0-2) Urine WBC Occ /HPF (0-4) Urine Squamous Epithelial Cells Few /LPF Urine Bacteria 0 /HPF (0-FEW) Urine Opiates Screen Neg (NEG) Urine Methadone Screen Neg (NEG) Urine Barbiturates Neg (NEG) Urine Phencyclidine Screen Neg (NEG) Urine Amphetamine/Methamphetamine Neg (NEG) Urine Benzodiazepines Screen Neg (NEG) Urine Cocaine Screen Neg (NEG) Urine Cannabinoids Screen Pos (NEG) Urine Ethyl Alcohol Neg (NEG) Influenza Type A Antigen Negative (NEGATIVE) Influenza Type B Antigen Negative (NEGATIVE) Test 04/03/19 17:50 04/04/19 03:40 Erythrocyte Sedimentation Rate 69 (0-25) Troponin I Quantitative < 0.017 ng/mL (0.000-0.055) White Blood Count 13.4 x10^3/uL (4.0-11.0) Red Blood Count 4.38 x10^6/uL (3.50-5.40) Hemoglobin 12.7 g/dL (12.0-15.5) Hematocrit 38.7 % (36.0-47.0) Mean Corpuscular Volume 88 fL (79-100) Mean Corpuscular Hemoglobin 29 pg (25-35) Mean Corpuscular Hemoglobin Concent 33 g/dL (31-37) Red Cell Distribution Width 15.0 % (11.5-14.5) Platelet Count 411 x10^3/uL (140-400) Neutrophils (%) (Auto) 75 % (31-73) Lymphocytes (%) (Auto) 7 % (24-48) Monocytes (%) (Auto) 17 % (0-9) Eosinophils (%) (Auto) 0 % (0-3) Basophils (%) (Auto) 0 % (0-3) Neutrophils # (Auto) 10.1 x10^3/uL (1.8-7.7) Lymphocytes # (Auto) 1.0 x10^3/uL (1.0-4.8) Monocytes # (Auto) 2.3 x10^3/uL (0.0-1.1) Eosinophils # (Auto) 0.0 x10^3/uL (0.0-0.7) Basophils # (Auto) 0.0 x10^3/uL (0.0-0.2) Segmented Neutrophils % 73 % (35-66) Band Neutrophils % 5 % (0-9) Lymphocytes % 7 % (24-48) Atypical Lymphocytes % (Manual) 1 % (0-0) Monocytes % 14 % (0-10) Platelet Estimate Increased (ADEQUATE) Large Platelets Few Polychromasia Slight Anisocytosis Slight Sodium Level 139 mmol/L (136-145) Potassium Level 3.2 mmol/L (3.5-5.1) Chloride Level 100 mmol/L (98-107) Carbon Dioxide Level 29 mmol/L (21-32) Anion Gap 10 (6-14) Blood Urea Nitrogen 5 mg/dL (7-20) Creatinine 0.8 mg/dL (0.6-1.0) Estimated GFR (Cockcroft-Gault) 90.1 Glucose Level 121 mg/dL (70-99) Calcium Level 9.1 mg/dL (8.5-10.1) Magnesium Level 2.3 mg/dL (1.8-2.4) Review of Systems Review of Systems cough feels btter chest pain improved, Assessment and Plan Assessmemt and Plan Problems Medical Problems: (1) CAP (community acquired pneumonia) Status: Acute (2) Chest pain Status: Acute (3) Elevated d-dimer Status: Acute (4) Hypertensive urgency Status: Acute (5) Hypoxia Status: Acute (6) Shortness of breath Status: Acute Comment Review of Relevant I have reviewed the following items marcia (where applicable) has been applied. Labs Laboratory Tests Test 04/03/19 09:30 04/03/19 10:23 04/03/19 12:50 04/03/19 14:05 White Blood Count 9.7 x10^3/uL (4.0-11.0) Red Blood Count 4.63 x10^6/uL (3.50-5.40) Hemoglobin 13.6 g/dL (12.0-15.5) Hematocrit 41.0 % (36.0-47.0) Mean Corpuscular Volume 89 fL (79-100) Mean Corpuscular Hemoglobin 29 pg (25-35) Mean Corpuscular Hemoglobin Concent 33 g/dL (31-37) Red Cell Distribution Width 15.2 % (11.5-14.5) Platelet Count 413 x10^3/uL (140-400) Neutrophils (%) (Auto) 76 % (31-73) Lymphocytes (%) (Auto) 10 % (24-48) Monocytes (%) (Auto) 13 % (0-9) Eosinophils (%) (Auto) 0 % (0-3) Basophils (%) (Auto) 0 % (0-3) Neutrophils # (Auto) 7.4 x10^3/uL (1.8-7.7) Lymphocytes # (Auto) 1.0 x10^3/uL (1.0-4.8) Monocytes # (Auto) 1.3 x10^3/uL (0.0-1.1) Eosinophils # (Auto) 0.0 x10^3/uL (0.0-0.7) Basophils # (Auto) 0.0 x10^3/uL (0.0-0.2) Prothrombin Time 14.8 SEC (11.7-14.0) Prothromb Time International Ratio 1.2 (0.8-1.1) D-Dimer (Keisha) 4.95 ug/mlFEU (0.00-0.50) Sodium Level 140 mmol/L (136-145) Potassium Level 3.1 mmol/L (3.5-5.1) Chloride Level 97 mmol/L (98-107) Carbon Dioxide Level 32 mmol/L (21-32) Anion Gap 11 (6-14) Blood Urea Nitrogen 6 mg/dL (7-20) Creatinine 0.9 mg/dL (0.6-1.0) Estimated GFR (Cockcroft-Gault) 78.7 BUN/Creatinine Ratio 7 (6-20) Glucose Level 158 mg/dL (70-99) Lactic Acid Level 2.0 mmol/L (0.4-2.0) 2.7 mmol/L (0.4-2.0) Calcium Level 9.2 mg/dL (8.5-10.1) Magnesium Level 1.8 mg/dL (1.8-2.4) Total Bilirubin 1.1 mg/dL (0.2-1.0) Aspartate Amino Transf (AST/SGOT) 20 U/L (15-37) Alanine Aminotransferase (ALT/SGPT) 16 U/L (14-59) Alkaline Phosphatase 172 U/L (46-116) Creatine Kinase 69 U/L (26-192) Troponin I Quantitative < 0.017 ng/mL (0.000-0.055) < 0.017 ng/mL (0.000-0.055) SU-Bin-G-Type Natriuretic Peptide 380 pg/mL (0-124) Total Protein 8.4 g/dL (6.4-8.2) Albumin 3.1 g/dL (3.4-5.0) Albumin/Globulin Ratio 0.6 (1.0-1.7) Lipase 58 U/L (73-393) Procalcitonin < 0.10 ng/mL (0.00-0.10) Ethyl Alcohol Level < 10 mg/dL (0-10) O2 Saturation 93 % (92-99) Arterial Blood pH 7.48 (7.35-7.45) Arterial Blood pCO2 at Patient Temp 38 mmHg (35-46) Arterial Blood pO2 at Patient Temp 60 mmHg (75-108) Arterial Blood HCO3 28 mmol/L (21-28) Arterial Blood Base Excess 4 mmol/L (-3-3) FiO2 32 C-Reactive Protein, Quantitative 313.6 mg/L (0-3.3) Test 04/03/19 17:30 04/03/19 17:35 04/03/19 17:50 04/04/19 03:40 Urine Collection Type Unknown Urine Color Briana Urine Clarity Clear Urine pH 6.5 Urine Specific [place] >=1.030 Urine Protein 30 mg/dL (NEG-TRACE) Urine Glucose (UA) Negative mg/dL (NEG) Urine Ketones (Stick) Negative mg/dL (NEG) Urine Blood Negative (NEG) Urine Nitrite Negative (NEG) Urine Bilirubin Negative (NEG) Urine Urobilinogen Dipstick 1.0 mg/dL (0.2 mg/dL) Urine Leukocyte Esterase Negative (NEG) Urine RBC 0 /HPF (0-2) Urine WBC Occ /HPF (0-4) Urine Squamous Epithelial Cells Few /LPF Urine Bacteria 0 /HPF (0-FEW) Urine Opiates Screen Neg (NEG) Urine Methadone Screen Neg (NEG) Urine Barbiturates Neg (NEG) Urine Phencyclidine Screen Neg (NEG) Urine Amphetamine/Methamphetamine Neg (NEG) Urine Benzodiazepines Screen Neg (NEG) Urine Cocaine Screen Neg (NEG) Urine Cannabinoids Screen Pos (NEG) Urine Ethyl Alcohol Neg (NEG) Influenza Type A Antigen Negative (NEGATIVE) Influenza Type B Antigen Negative (NEGATIVE) Erythrocyte Sedimentation Rate 69 (0-25) Troponin I Quantitative < 0.017 ng/mL (0.000-0.055) White Blood Count 13.4 x10^3/uL (4.0-11.0) Red Blood Count 4.38 x10^6/uL (3.50-5.40) Hemoglobin 12.7 g/dL (12.0-15.5) Hematocrit 38.7 % (36.0-47.0) Mean Corpuscular Volume 88 fL (79-100) Mean Corpuscular Hemoglobin 29 pg (25-35) Mean Corpuscular Hemoglobin Concent 33 g/dL (31-37) Red Cell Distribution Width 15.0 % (11.5-14.5) Platelet Count 411 x10^3/uL (140-400) Neutrophils (%) (Auto) 75 % (31-73) Lymphocytes (%) (Auto) 7 % (24-48) Monocytes (%) (Auto) 17 % (0-9) Eosinophils (%) (Auto) 0 % (0-3) Basophils (%) (Auto) 0 % (0-3) Neutrophils # (Auto) 10.1 x10^3/uL (1.8-7.7) Lymphocytes # (Auto) 1.0 x10^3/uL (1.0-4.8) Monocytes # (Auto) 2.3 x10^3/uL (0.0-1.1) Eosinophils # (Auto) 0.0 x10^3/uL (0.0-0.7) Basophils # (Auto) 0.0 x10^3/uL (0.0-0.2) Segmented Neutrophils % 73 % (35-66) Band Neutrophils % 5 % (0-9) Lymphocytes % 7 % (24-48) Atypical Lymphocytes % (Manual) 1 % (0-0) Monocytes % 14 % (0-10) Platelet Estimate Increased (ADEQUATE) Large Platelets Few Polychromasia Slight Anisocytosis Slight Sodium Level 139 mmol/L (136-145) Potassium Level 3.2 mmol/L (3.5-5.1) Chloride Level 100 mmol/L (98-107) Carbon Dioxide Level 29 mmol/L (21-32) Anion Gap 10 (6-14) Blood Urea Nitrogen 5 mg/dL (7-20) Creatinine 0.8 mg/dL (0.6-1.0) Estimated GFR (Cockcroft-Gault) 90.1 Glucose Level 121 mg/dL (70-99) Calcium Level 9.1 mg/dL (8.5-10.1) Magnesium Level 2.3 mg/dL (1.8-2.4) Laboratory Tests Test 04/03/19 12:50 04/03/19 14:05 04/03/19 17:30 04/03/19 17:35 Lactic Acid Level 2.7 mmol/L (0.4-2.0) Troponin I Quantitative < 0.017 ng/mL (0.000-0.055) C-Reactive Protein, Quantitative 313.6 mg/L (0-3.3) Urine Collection Type Unknown Urine Color Briana Urine Clarity Clear Urine pH 6.5 Urine Specific [place] >=1.030 Urine Protein 30 mg/dL (NEG-TRACE) Urine Glucose (UA) Negative mg/dL (NEG) Urine Ketones (Stick) Negative mg/dL (NEG) Urine Blood Negative (NEG) Urine Nitrite Negative (NEG) Urine Bilirubin Negative (NEG) Urine Urobilinogen Dipstick 1.0 mg/dL (0.2 mg/dL) Urine Leukocyte Esterase Negative (NEG) Urine RBC 0 /HPF (0-2) Urine WBC Occ /HPF (0-4) Urine Squamous Epithelial Cells Few /LPF Urine Bacteria 0 /HPF (0-FEW) Urine Opiates Screen Neg (NEG) Urine Methadone Screen Neg (NEG) Urine Barbiturates Neg (NEG) Urine Phencyclidine Screen Neg (NEG) Urine Amphetamine/Methamphetamine Neg (NEG) Urine Benzodiazepines Screen Neg (NEG) Urine Cocaine Screen Neg (NEG) Urine Cannabinoids Screen Pos (NEG) Urine Ethyl Alcohol Neg (NEG) Influenza Type A Antigen Negative (NEGATIVE) Influenza Type B Antigen Negative (NEGATIVE) Test 04/03/19 17:50 04/04/19 03:40 Erythrocyte Sedimentation Rate 69 (0-25) Troponin I Quantitative < 0.017 ng/mL (0.000-0.055) White Blood Count 13.4 x10^3/uL (4.0-11.0) Red Blood Count 4.38 x10^6/uL (3.50-5.40) Hemoglobin 12.7 g/dL (12.0-15.5) Hematocrit 38.7 % (36.0-47.0) Mean Corpuscular Volume 88 fL (79-100) Mean Corpuscular Hemoglobin 29 pg (25-35) Mean Corpuscular Hemoglobin Concent 33 g/dL (31-37) Red Cell Distribution Width 15.0 % (11.5-14.5) Platelet Count 411 x10^3/uL (140-400) Neutrophils (%) (Auto) 75 % (31-73) Lymphocytes (%) (Auto) 7 % (24-48) Monocytes (%) (Auto) 17 % (0-9) Eosinophils (%) (Auto) 0 % (0-3) Basophils (%) (Auto) 0 % (0-3) Neutrophils # (Auto) 10.1 x10^3/uL (1.8-7.7) Lymphocytes # (Auto) 1.0 x10^3/uL (1.0-4.8) Monocytes # (Auto) 2.3 x10^3/uL (0.0-1.1) Eosinophils # (Auto) 0.0 x10^3/uL (0.0-0.7) Basophils # (Auto) 0.0 x10^3/uL (0.0-0.2) Segmented Neutrophils % 73 % (35-66) Band Neutrophils % 5 % (0-9) Lymphocytes % 7 % (24-48) Atypical Lymphocytes % (Manual) 1 % (0-0) Monocytes % 14 % (0-10) Platelet Estimate Increased (ADEQUATE) Large Platelets Few Polychromasia Slight Anisocytosis Slight Sodium Level 139 mmol/L (136-145) Potassium Level 3.2 mmol/L (3.5-5.1) Chloride Level 100 mmol/L (98-107) Carbon Dioxide Level 29 mmol/L (21-32) Anion Gap 10 (6-14) Blood Urea Nitrogen 5 mg/dL (7-20) Creatinine 0.8 mg/dL (0.6-1.0) Estimated GFR (Cockcroft-Gault) 90.1 Glucose Level 121 mg/dL (70-99) Calcium Level 9.1 mg/dL (8.5-10.1) Magnesium Level 2.3 mg/dL (1.8-2.4) Microbiology 04/03/19 Blood Culture - Preliminary, Resulted NO GROWTH AFTER 1 DAY Medications Current Medications Albuterol/ Ipratropium (Duoneb) 3 ml 1X ONCE NEB Last administered on 04/03/19at 09:36; Start 04/03/19 at 09:30; Stop 04/03/19 at 09:50; Status DC Methylprednisolone Sodium Succinate (SOLU-Medrol 125MG VIAL) 125 mg 1X ONCE IV Last administered on 04/03/19at 10:08; Start 04/03/19 at 09:30; Stop 04/03/19 at 09:50; Status DC Fentanyl Citrate (Fentanyl 2ml Vial) 50 mcg 1X ONCE IVP Last administered on 04/03/19at 10:09; Start 04/03/19 at 09:30; Stop 04/03/19 at 09:50; Status DC Sodium Chloride 1,000 ml @ 1,000 mls/hr 1X ONCE IV Last administered on 04/03/19at 10:53; Start 04/03/19 at 10:30; Stop 04/03/19 at 11:29; Status DC Ceftriaxone Sodium (Rocephin) 1 gm 1X ONCE IVP Last administered on 04/03/19at 10:54; Start 04/03/19 at 10:30; Stop 04/03/19 at 10:31; Status DC Vancomycin HCl 250 ml @ 250 mls/hr 1X ONCE IV Last administered on 04/03/19at 10:54; Start 04/03/19 at 10:30; Stop 04/03/19 at 11:29; Status DC Iohexol (Omnipaque 350 Mg/ml) 100 ml 1X ONCE IV Last administered on 04/03/19at 11:44; Start 04/03/19 at 11:15; Stop 04/03/19 at 11:16; Status DC Iohexol (Omnipaque 350 Mg/ml) 100 ml STK-MED ONCE .ROUTE ; Start 04/03/19 at 11:14; Stop 04/03/19 at 11:14; Status DC Info (CONTRAST GIVEN -- Rx MONITORING) 1 each PRN DAILY PRN MC SEE COMMENTS; Start 04/03/19 at 11:15; Stop 04/05/19 at 11:14 Labetalol HCl (Normodyne Iv Push) 10 mg 1X ONCE IVP Last administered on 04/03/19at 12:39; Start 04/03/19 at 11:30; Stop 04/03/19 at 11:31; Status DC Sodium Chloride 1,000 ml @ 100 mls/hr Q10H IV Last administered on 04/03/19 22:00; Start 04/03/19 at 11:16; Stop 04/04/19 at 11:15; Status DC Budesonide (Pulmicort) 0.5 mg RTBID NEB Last administered on 04/04/19 08:45; Start 04/03/19 at 20:00 Albuterol/ Ipratropium (Duoneb) 3 ml RTQID NEB Last administered on 04/04/19 08:45; Start 04/03/19 at 16:00 Ketorolac Tromethamine (Toradol 15mg Vial) 15 mg 1X ONCE IV Last administered on 04/03/19 14:44; Start 04/03/19 at 14:30; Stop 04/03/19 at 14:34; Status DC Allopurinol (Zyloprim) 300 mg DAILY PO Last administered on 04/04/19 09:16; Start 04/03/19 at 15:00 Amlodipine Besylate (Norvasc) 10 mg DAILY PO Last administered on 04/04/19 09:14; Start 04/03/19 at 15:00 Citalopram Hydrobromide (CeleXA) 10 mg DAILY PO Last administered on 04/04/19 09:16; Start 04/03/19 at 15:00 Potassium Chloride/Water 100 ml @ 100 mls/hr Q1H IV Last administered on 04/03/19 19:18; Start 04/03/19 at 15:00; Stop 04/03/19 at 18:59; Status DC Magnesium Sulfate 50 ml @ 25 mls/hr 1X ONCE IV Last administered on 04/03/19 14:46; Start 04/03/19 at 14:30; Stop 04/03/19 at 16:29; Status DC Morphine Sulfate (Morphine Sulfate) 4 mg PRN Q4HRS PRN IV MODERATE TO SEVERE PAIN Last administered on 04/03/19 19:19; Start 04/03/19 at 14:30 Ceftriaxone Sodium (Rocephin) 1 gm Q24H IVP ; Start 04/04/19 at 09:00; Stop 04/04/19 at 08:18; Status DC Doxycycline Hyclate 100 mg/ Dextrose 100 ml @ 50 mls/hr Q12HR IV Last administered on 04/03/19at 21:59; Start 04/03/19 at 21:00; Stop 04/04/19 at 08:18; Status DC Losartan Potassium (Cozaar) 50 mg DAILY PO Last administered on 04/04/19at 09:16; Start 04/03/19 at 17:30 Ketorolac Tromethamine (Toradol 15mg Vial) 15 mg PRN Q6HRS PRN IV PAIN Last administered on 04/04/19at 05:45; Start 04/03/19 at 17:00; Stop 04/08/19 at 16:59 Enoxaparin Sodium (Lovenox 40mg Syringe) 40 mg Q24H SQ Last administered on 04/03/19at 18:09; Start 04/03/19 at 18:00 Famotidine (Pepcid) 20 mg BID PO Last administered on 04/04/19at 09:16; Start 04/03/19 at 21:00 Prednisone (Prednisone) 20 mg DAILY PO Last administered on 04/04/19at 09:16; Start 04/04/19 at 09:00 Hydralazine HCl (Apresoline Inj) 10 mg PRN Q4HRS PRN IVP ELEVATED BP, SEE COMMENTS Last administered on 04/03/19at 23:39; Start 04/03/19 at 18:15 Doxycycline Hyclate (Vibra-Tab) 100 mg 1X ONCE PO Last administered on 04/04/19at 09:16; Start 04/04/19 at 09:00; Stop 04/04/19 at 09:01; Status DC Ceftriaxone Sodium (Rocephin Im) 1 gm 1X ONCE IM Last administered on 04/04/19at 09:17; Start 04/04/19 at 09:00; Stop 04/04/19 at 09:01; Status DC Potassium Chloride (Klor-Con) 40 meq 1X ONCE PO Last administered on 04/04/19at 11:02; Start 04/04/19 at 10:00; Stop 04/04/19 at 10:01; Status DC Doxycycline Hyclate (Vibra-Tab) 100 mg BID PO ; Start 04/04/19 at 11:00 Doxycycline Hyclate (Vibra-Tab) 100 mg BID PO ; Start 04/04/19 at 21:00; Status UNV Ceftriaxone Sodium (Rocephin) 1 gm Q24H IVP ; Start 04/04/19 at 11:00 Active Scripts Active Doxycycline Hyclate 100 Mg Capsule 1 Cap PO BID Famotidine 20 Mg Tablet 20 Mg PO BID PRN Reported Escitalopram Oxalate 10 Mg Tablet 10 Mg PO DAILY 30 Days Sprycel (Dasatinib) 70 Mg Tablet 70 Mg PO DAILY 30 Days Amlodipine Besylate 10 Mg Tablet 10 Mg PO DAILY Lisinopril 40 Mg Tablet 40 Mg PO DAILY Chlorthalidone (Chlorthalidone) 25 Mg Tablet 25 Mg PO DAILY Allopurinol 300 Mg Tablet 300 Mg PO DAILY Celexa (Citalopram Hydrobromide) 10 Mg Tablet 10 Mg PO DAILY Vitals/I & O Vital Sign - Last 24 Hours 04/03/19 04/03/19 04/03/19 04/03/19 12:00 12:00 12:39 12:59 Temp 99.8 99.8 Pulse 108 103 Resp 24 22 B/P (MAP) 188/105 (132) 188/105 Pulse Ox 92 92 O2 Delivery Room Air Room Air Room Air 04/03/19 04/03/19 04/03/19 04/03/19 13:00 14:00 15:00 15:14 Pulse 91 95 96 98 Resp 22 22 20 B/P (MAP) 127/79 (95) 171/105 (127) 175/101 (125) 175/101 Pulse Ox 92 92 93 O2 Delivery Room Air Room Air Room Air 04/03/19 04/03/19 04/03/19 04/03/19 15:53 16:00 16:00 17:39 Temp 99.6 99.6 Pulse 95 110 Resp 22 B/P (MAP) 171/95 (120) 181/111 Pulse Ox 91 92 O2 Delivery Room Air Room Air Room Air 04/03/19 04/03/19 04/03/19 04/03/19 18:14 19:19 19:49 19:49 Pulse 100 Resp 18 16 B/P (MAP) 180/110 Pulse Ox 91 92 O2 Delivery Room Air Nasal Cannula Room Air O2 Flow Rate 3.0 04/03/19 04/03/19 04/03/19 04/04/19 20:00 20:00 23:39 00:00 Temp 99.1 98.7 99.1 98.7 Pulse 105 107 108 Resp 20 20 B/P (MAP) 145/95 (112) 178/95 154/89 (110) Pulse Ox 92 91 O2 Delivery Nasal Cannula Nasal Cannula Room Air O2 Flow Rate 2.0 3.0 04/04/19 04/04/19 04/04/19 04/04/19 04:00 08:00 08:00 08:46 Temp 98.8 98.6 98.8 98.6 Pulse 114 103 Resp 18 22 B/P (MAP) 158/98 (118) 156/97 (116) Pulse Ox 91 89 O2 Delivery Room Air Room Air Nasal Cannula Nasal Cannula O2 Flow Rate 2.0 2.0 04/04/19 04/04/19 09:14 09:16 Pulse 103 103 B/P (MAP) 168/89 168/89 Intake and Output 04/03/19 04/03/19 04/04/19 14:59 22:59 06:59 Intake Total 500 ml 880 ml 1730 ml Output Total 0 ml 0 ml Balance 500 ml 880 ml 1730 ml ESTEFANI CROOK MD Apr 04, 2019 11:20
--- NOTE | 2019-04-04 11:30 | NUR ---
Doxycycline PO and Rocephin IVP non administered due to already being given this AM. Next scheduled dose due this PM.
[2019-04-04 12:00] VITALS: BP 161/92
--- NOTE | 2019-04-04 14:49 | PDOC2 ---
YONI MONTANO BREEDER HEN SERVICE TECHNICIAN 04/04/19 1449: CARDIAC CONSULT DATE OF CONSULT Date of Consult DATE: 04/04/19 TIME: 14:42 REASON FOR CONSULT Reason for Consult: Chest pain Pericardial effusion REFERRING PHYSICIAN Referring Physician: Dr. Davidson SOURCE Source: Chart review, Patient HISTORY OF PRESENT ILLNESS HISTORY OF PRESENT ILLNESS This is a 53 yo female who presented secondary to shortness of breath and chest pain. Patient reports intermittent chest pain for the last couple of weeks. Describes as stabbing/aching in nature. Seems to be worse at night when she is laying down and worse with deep breathing. No dizziness, diaphoresis, palpitations, or nausea/vomiting. Chest CTA notable for moderate pericardial effusion and chf. PAST MEDICAL HISTORY Cardiovascular: CHF, HTN, Hyperlipidemia Heme/Onc: Other (Leukemia ) PAST SURGICAL HISTORY Past Surgical History: No pertinent history FAMILY HISTORY Family History: Cancer SOCIAL HISTORY Smoke: <1 pack per day ALCOHOL: heavy (1 pint daily) Drugs: Marijuana Lives: with Family CURRENT MEDICATIONS CURRENT MEDICATIONS Current Medications Medications (Trade) Dose Ordered Sig/Carolyn Route PRN Reason Start Time Stop Time Status Last Admin Dose Admin Budesonide (Pulmicort) 0.5 mg RTBID NEB 04/03/19 20:00 04/04/19 08:45 Albuterol/ Ipratropium (Duoneb) 3 ml RTQID NEB 04/03/19 16:00 04/04/19 12:12 Allopurinol (Zyloprim) 300 mg DAILY PO 04/03/19 15:00 04/04/19 09:16 Amlodipine Besylate (Norvasc) 10 mg DAILY PO 04/03/19 15:00 04/04/19 09:14 Citalopram Hydrobromide (CeleXA) 10 mg DAILY PO 04/03/19 15:00 04/04/19 09:16 Potassium Chloride/Water 100 ml @ 100 mls/hr Q1H IV 04/03/19 15:00 04/03/19 18:59 DC 04/03/19 19:18 Doxycycline Hyclate 100 mg/ Dextrose 100 ml @ 50 mls/hr Q12HR IV 04/03/19 21:00 04/04/19 08:18 DC 04/03/19 21:59 Losartan Potassium (Cozaar) 50 mg DAILY PO 04/03/19 17:30 04/04/19 09:16 Ketorolac Tromethamine (Toradol 15mg Vial) 15 mg PRN Q6HRS PRN IV PAIN 04/03/19 17:00 04/08/19 16:59 04/04/19 05:45 Enoxaparin Sodium (Lovenox 40mg Syringe) 40 mg Q24H SQ 04/03/19 18:00 04/03/19 18:09 Famotidine (Pepcid) 20 mg BID PO 04/03/19 21:00 04/04/19 09:16 Prednisone (Prednisone) 20 mg DAILY PO 04/04/19 09:00 04/04/19 09:16 Hydralazine HCl (Apresoline Inj) 10 mg PRN Q4HRS PRN IVP ELEVATED BP, SEE COMMENTS 04/03/19 18:15 04/03/19 23:39 Doxycycline Hyclate (Vibra-Tab) 100 mg 1X ONCE PO 04/04/19 09:00 04/04/19 09:01 DC 04/04/19 09:16 Ceftriaxone Sodium (Rocephin Im) 1 gm 1X ONCE IM 04/04/19 09:00 04/04/19 09:01 DC 04/04/19 09:17 Potassium Chloride (Klor-Con) 40 meq 1X ONCE PO 04/04/19 10:00 04/04/19 10:01 DC 04/04/19 11:02 ALLERGIES ALLERGIES: Coded Allergies: No Known Drug Allergies (Unverified , 04/03/19) ROS Review of System 14 point ROS conducted with pertinent positives noted above in HPI. PHYSICAL EXAM General: Alert, Oriented X3, Cooperative, No acute distress HEENT: Atraumatic, Mucous membr. moist/pink Lungs: Clear to auscultation Heart: Regular rate, Normal S1, Normal S2, No murmurs Abdomen: No tenderness Extremities: No edema, Normal pulses Skin: No significant lesion Neuro: Normal speech, Sensation intact Psych/Mental Status: Mental status NL, Mood NL MUSCULOSKELETAL: No swelling VITALS/I&O VITALS/I&O: Vital Signs Date Time Temp Pulse Resp B/P (MAP) Pulse Ox O2 Delivery O2 Flow Rate FiO2 04/04/19 12:14 Nasal Cannula 2.0 04/04/19 12:00 98.2 99 20 161/92 (115) 98 98.2 I & O 04/03/19 04/03/19 04/04/19 15:00 23:00 07:00 Intake Total 500 ml 880 ml 1730 ml Output Total 0 ml 0 ml Balance 500 ml 880 ml 1730 ml LABS Lab: Laboratory Tests Test 04/03/19 17:30 04/03/19 17:35 04/03/19 17:50 04/04/19 03:40 Urine Collection Type Unknown Urine Color Briana Urine Clarity Clear Urine pH 6.5 Urine Specific [place] >=1.030 Urine Protein 30 mg/dL (NEG-TRACE) Urine Glucose (UA) Negative mg/dL (NEG) Urine Ketones (Stick) Negative mg/dL (NEG) Urine Blood Negative (NEG) Urine Nitrite Negative (NEG) Urine Bilirubin Negative (NEG) Urine Urobilinogen Dipstick 1.0 mg/dL (0.2 mg/dL) Urine Leukocyte Esterase Negative (NEG) Urine RBC 0 /HPF (0-2) Urine WBC Occ /HPF (0-4) Urine Squamous Epithelial Cells Few /LPF Urine Bacteria 0 /HPF (0-FEW) Urine Opiates Screen Neg (NEG) Urine Methadone Screen Neg (NEG) Urine Barbiturates Neg (NEG) Urine Phencyclidine Screen Neg (NEG) Urine Amphetamine/Methamphetamine Neg (NEG) Urine Benzodiazepines Screen Neg (NEG) Urine Cocaine Screen Neg (NEG) Urine Cannabinoids Screen Pos (NEG) Urine Ethyl Alcohol Neg (NEG) Influenza Type A Antigen Negative (NEGATIVE) Influenza Type B Antigen Negative (NEGATIVE) Erythrocyte Sedimentation Rate 69 (0-25) H Troponin I Quantitative < 0.017 ng/mL (0.000-0.055) White Blood Count 13.4 x10^3/uL (4.0-11.0) H Red Blood Count 4.38 x10^6/uL (3.50-5.40) Hemoglobin 12.7 g/dL (12.0-15.5) Hematocrit 38.7 % (36.0-47.0) Mean Corpuscular Volume 88 fL (79-100) Mean Corpuscular Hemoglobin 29 pg (25-35) Mean Corpuscular Hemoglobin Concent 33 g/dL (31-37) Red Cell Distribution Width 15.0 % (11.5-14.5) H Platelet Count 411 x10^3/uL (140-400) H Neutrophils (%) (Auto) 75 % (31-73) H Lymphocytes (%) (Auto) 7 % (24-48) L Monocytes (%) (Auto) 17 % (0-9) H Eosinophils (%) (Auto) 0 % (0-3) Basophils (%) (Auto) 0 % (0-3) Neutrophils # (Auto) 10.1 x10^3/uL (1.8-7.7) H Lymphocytes # (Auto) 1.0 x10^3/uL (1.0-4.8) Monocytes # (Auto) 2.3 x10^3/uL (0.0-1.1) H Eosinophils # (Auto) 0.0 x10^3/uL (0.0-0.7) Basophils # (Auto) 0.0 x10^3/uL (0.0-0.2) Segmented Neutrophils % 73 % (35-66) H Band Neutrophils % 5 % (0-9) Lymphocytes % 7 % (24-48) L Atypical Lymphocytes % (Manual) 1 % (0-0) H Monocytes % 14 % (0-10) H Platelet Estimate Increased (ADEQUATE) Large Platelets Few Polychromasia Slight Anisocytosis Slight Sodium Level 139 mmol/L (136-145) Potassium Level 3.2 mmol/L (3.5-5.1) L Chloride Level 100 mmol/L (98-107) Carbon Dioxide Level 29 mmol/L (21-32) Anion Gap 10 (6-14) Blood Urea Nitrogen 5 mg/dL (7-20) L Creatinine 0.8 mg/dL (0.6-1.0) Estimated GFR (Cockcroft-Gault) 90.1 Glucose Level 121 mg/dL (70-99) H Calcium Level 9.1 mg/dL (8.5-10.1) Magnesium Level 2.3 mg/dL (1.8-2.4) Laboratory Tests 04/04/19 03:40 Laboratory Tests 04/04/19 03:40 ECHOCARDIOGRAM ECHOCARDIOGRAM <Conclusion> The left ventricular systolic function is normal. The Ejection Fraction is 60-65%. There is normal LV segmental wall motion. Trace mitral regurgitation. Trace tricuspid regurgitation. The PA pressure was estimated at 33 mmHg. There is a trace circumferential pericardial effusion. DATE: 04/04/19 1021 ASSESSMENT/PLAN ASSESSMENT/PLAN 1. Chest pain, atypical. AMI ruled out. Echo with preserved LV systolic function. Lipid panel- statin if indicated 2. Elevated CRP, ? pericarditis. Ibuprofen upon discharge 3. Dyspnea; multifactorial with mild acute on chronic CHF, pleural effusion, and COPD. Better compensated 4. Hypertension; labile. Increase losartan for better control 5. Pericardial effusion; moderate per CTA, but further evaluated with echo and effusion only trace. 6. Leukemia 7. Leukocytosis, lactic acidosis 8. Hypokalemia; replaced 9. Marijuana use, tobaccoism; discussed/encouraged cessation 10. GERD; PPI JONATHAN MCALLISTER MD 04/04/192032: CARDIAC CONSULT ASSESSMENT/PLAN ASSESSMENT/PLAN Patient seen and examined. Agree with FIRST OFFICER's assessment and plan. CP with pleuritic features. Pericardial rub on auscultation and trace pericardial effusion on 2D echo c/w pericarditis ID ruled out Recommend high dose NSAID's Mild acute on chr diastolic HF better compensated OK for DC from cardiac standpoint Thank you for your consultation YONI MONTANO APRN Apr 04, 2019 14:49 JONATHAN MCALLISTER MD Apr 04, 2019 20:33
[2019-04-04 15:37] VITALS: BP 161/75
[2019-04-04] MEDS ORDERED: IBUP-1007 PO (15:43)
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
[2019-04-04 16:42] LABS: CHOLESTEROL/HDL RATIO 3.2
[2019-04-05 06:11] LABS: HEMOGLOBIN A1C 5.4 % (4.8-5.6)
[2019-04-05] MEDS ORDERED: LOSARTAN POTASSIUM 50 MG TABLET. PO SCH (09:00)
== END 2019-04-04 16:00 | disposition home or self-care (01) | DRG 871 ==
LOC: ER 09:12 → 1 WEST ICU 09:52
PROVIDERS: ADMIT Internal Medicine; ATTEND Internal Medicine
DX: A41.9 Sepsis, unspecified organism (principal); J18.9 Pneumonia, unspecified organism; J96.01 Acute respiratory failure with hypoxia; I50.33 Acute on chronic diastolic (congestive) heart failure; C95.90 Leukemia, unspecified not having achieved remission; I30.9 Acute pericarditis, unspecified; J44.0 Chronic obstructive pulmonary disease with (acute) lower respiratory infection; J98.11 Atelectasis; C92.10 Chronic myeloid leukemia, BCR/ABL-positive, not having achieved remission; E78.5 Hyperlipidemia, unspecified; E87.6 Hypokalemia; F17.210 Nicotine dependence, cigarettes, uncomplicated; I11.0 Hypertensive heart disease with heart failure; I16.0 Hypertensive urgency; K21.9 Gastro-esophageal reflux disease without esophagitis; Z80.7 Family history of other malignant neoplasms of lymphoid, hematopoietic and related tissues; Z82.49 Family history of ischemic heart disease and other diseases of the circulatory system
CPT/HCPCS: 36415; 36600; 71045; 71275; 80048; 80053; 80061; 80307; 81001; 82550; 82805; 83036; 83605; 83690; 83735; 83880; 84145; 84484; 85007; 85025; 85379; 85610; 85651; 86140; 87040; 87641; 87804; 93005; 93306; 94640; G0480; J0360; J0696; J1650; J1885; J2270; J2930; J3010; J3370; J3475; J3480; J3490; J7030; J7512; J7620; J7626; Q9967; G0378